=== PATIENT | male | born 1950 | race Hispanic/Latino ===

== ENCOUNTER → 2020-07-14 | Outpatient (CLI) | payer OTHER ==
[~2020-07-14] VITALS: Ht 165.1 cm; Wt 77.1 kg
[~2020-07-14] MED LIST: AMLO-258 PO; ASPI-1443 PO; ATEN100T PO; CLON1TAB12 PO; DOCU240C25 PO; FERR325T22 PO; GABA-531 PO; HYDR-3422 PO; MIRT30TA6 PO; OMEP20TA25 PO; PRAV40TA3 PO; REGADENOSON 0.4 MG/5 ML PF SYG IVP SCH; SENN8.6T32 PO; VENL-191 PO; VIT1CAPS47 PO
== END | disposition home or self-care (01) ==
LOC: SHCH 07:52
PROVIDERS: ATTEND Internal Medicine Cardiovascular Disease
DX: R07.9 Chest pain, unspecified (principal); I10 Essential (primary) hypertension
CPT/HCPCS: 78452; 93017; 96374; A9500 ×2